=== PATIENT | female | born 1995 | race Caucasian/White ===

== ENCOUNTER → 2023-08-28 | Outpatient (CLI) | payer OTHER | LOC: MHCPAIN 12:18 | DX: M79.18 Myalgia, other site (principal); M54.50 Low back pain, unspecified; M53.3 Sacrococcygeal disorders, not elsewhere classified | CPT/HCPCS: G0463 ==

== ENCOUNTER → 2023-10-09 | Outpatient (CLI) | payer OTHER | LOC: MHCPAIN 12:31 | DX: M79.18 Myalgia, other site (principal); M54.50 Low back pain, unspecified | CPT/HCPCS: J0665; J1040 ==

== ENCOUNTER → 2023-11-06 | Outpatient (CLI) | payer OTHER | LOC: MHCPAIN 13:20 | DX: M54.50 Low back pain, unspecified (principal); M53.3 Sacrococcygeal disorders, not elsewhere classified | CPT/HCPCS: G0463 ==